=== PATIENT | female | born 1980 | race Caucasian/White ===

== ENCOUNTER 2017-01-21 14:46 | Emergency (ER) | payer BC, OTHER ==
[2017-01-21] MEDS ORDERED: Naproxen 500 MG TAB ONE (15:42)
--- NOTE | 2017-01-21 15:58 | RAD ---
LEFT KNEE 4 VIEW: Date: 01/21/17 HISTORY: Left knee pain. FINDINGS/IMPRESSION: No fracture, dislocation, or bony destruction is seen. There is an osteophyte arising from the super ior anterior aspect of the patella. POS: INÉS
== END 2017-01-21 15:47 | disposition home or self-care (01) ==
LOC: MADERS 14:46
DX: S76.112A Strain of left quadriceps muscle, fascia and tendon, initial encounter (principal); F41.9 Anxiety disorder, unspecified; K21.9 Gastro-esophageal reflux disease without esophagitis; Z79.899 Other long term (current) drug therapy; X50.1XXA Overexertion from prolonged static or awkward postures, initial encounter

== ENCOUNTER 2017-12-08 08:29 | Outpatient (CLI) | payer OTHER ==
[2017-12-08 09:10] LABS: Cardiac Risk 4.5 (Less than 4.5)
== END 2017-12-08 08:30 | disposition home or self-care (01) ==
LOC: MADLAB 08:29
PROVIDERS: ATTEND Family Medicine
DX: Z13.220 Encounter for screening for lipoid disorders (principal); F41.9 Anxiety disorder, unspecified
CPT/HCPCS: 36415; 80061; 84443

== ENCOUNTER 2021-02-13 18:49 | Emergency (ER) | payer BC, OTHER ==
[2021-02-13] MEDS ORDERED: Ibuprofen 200 MG TAB ONE (19:07)
[2021-02-14 16:16] LABS: SARS-CoV-2 PCR by NAA Not Detected (NotDetected)
== END 2021-02-13 19:29 | disposition home or self-care (01) ==
LOC: MADERS 18:49
DX: R50.9 Fever, unspecified (principal); R05 Cough; R51.9 Headache, unspecified; Z20.822 Contact with and (suspected) exposure to COVID-19; J30.2 Other seasonal allergic rhinitis; F41.9 Anxiety disorder, unspecified; K21.9 Gastro-esophageal reflux disease without esophagitis; Z79.899 Other long term (current) drug therapy
CPT/HCPCS: 87635; 99283; U0003; U0005

== ENCOUNTER 2023-11-21 09:35 | Emergency (ER) | payer BC, SELFPAY ==
[2023-11-21] MEDS ORDERED: Sodium Chloride 0.9% 1,000 ML ONE (10:03)
[2023-11-21] MEDS ORDERED: Ondansetron PF 4 MG/2 ML Vial ONE (10:03)
[2023-11-21] MEDS ORDERED: Meclizine HCl 25 MG TAB ONE (10:03)
[2023-11-21 10:34] LABS: ALT (SGPT) 18 U/L (8-55); AST (SGOT) 17 U/L (5-34); Albumin 4.9 g/dL (3.5-5.0); Alkaline Phosphatase 50 U/L (40-110); Anion Gap 19 mmol/L (10-20); BUN (Urea Nitrogen) 13 mg/dL (7.0-18.7); Bilirubin, Total 0.4 mg/dL (0.2-1.2); Calc. Creatinine Clearance 0 mL/min (70-130); Calcium 10.1 mg/dL (7.8-10.44); Carbon Dioxide 20 mmol/L (22-29); Chloride 106 mmol/L (98-107); Estimated GFR 85; Globulin 2.9 g/dL (2.4-3.5); Glucose 109 mg/dL (70-105); Potassium 4.4 mmol/L (3.5-5.1); Protein, Total 7.8 g/dL (6.0-8.3); Sodium 141 mmol/L (136-145)
[2023-11-21 11:05] LABS: Hemoglobin 13.1 g/dL (12.0-16.0); Mean Corpuscular Hemoglobin 28.4 pg (27.0-31.0); Mean Corpuscular Volume 88.7 fl (78.0-98.0); Mean Platelet Volume 10.2 fL (7.4-10.4); Platelet Count 322 10x3/uL (130-400); RBC Distribution Width 13.1 % (11.5-14.5); Red Blood Cell (RBC) Count 4.63 mill/uL (4.20-5.40); White Blood Cell (WBC) Count 8.6 10x3/uL (4.8-10.8)
[2023-11-21 11:07] LABS: Band 1 % (5-11); Lymphocytes 29 % (21-51); MDiff Complete? YES; Manual Diff?? YES; Monocytes 8 % (0-10); Neutrophil 61 % (42-75)
[2023-11-21 11:08] LABS: Eosinophils 1 % (0-10); RBC Morph Comment Within Normal Limits
[2023-11-21 11:09] LABS: Platelet Adequacy Comment Appears Adequate
[2023-11-21 11:18] LABS: Bilirubin Negative (Negative); Blood, Urine Negative (Negative); Clarity Slightly Cloudy (Clear); Glucose, Urine (Dipstick) Negative (Negative); Ketone, Urine Trace mg/dL (Negative); Leukocyte Trace (Negative); Nitrite Negative (Negative); Protein, Urine (Dipstick) 100 mg/dL (Neg-Trace); Urobilinogen 0.2 mg/dL (Less than 2); pH, Urine 8.5 (5.0-9.0)
[2023-11-21 11:19] LABS: CAUTI Indications for Culture Dysuria,urgency,freq
[2023-11-21 11:24] LABS: RBC/HPF 0-3 HPF (0-3); Squamous Epithelial 0-3 HPF (0-3); Transitional Epithelial 0-3 HPF (None Seen)
[2023-11-21 11:25] LABS: Bacteria/HPF 3+ HPF (None Seen)
[2023-11-21 11:26] LABS: Urine Culture Reflex No No
== END 2023-11-21 11:43 | disposition home or self-care (01) ==
LOC: MADERS 09:35
DX: H81.13 Benign paroxysmal vertigo, bilateral (principal); H65.93 Unspecified nonsuppurative otitis media, bilateral; R11.2 Nausea with vomiting, unspecified; K21.9 Gastro-esophageal reflux disease without esophagitis; Z79.899 Other long term (current) drug therapy
CPT/HCPCS: 80053; 81001; 85025; 96361; 96374; J2405; J7050

== ENCOUNTER 2024-11-08 18:56 | Emergency (ER) | payer BC | END 2024-11-08 20:51 | disposition home or self-care (01) | LOC: MADERS 18:56 | DX: J06.9 Acute upper respiratory infection, unspecified (principal); K21.9 Gastro-esophageal reflux disease without esophagitis; Z79.899 Other long term (current) drug therapy | CPT/HCPCS: 87428; 99283 ==